=== PATIENT | female | born 1955 | race Hispanic/Latino ===

== ENCOUNTER 2025-02-26 16:07 | Emergency (ER) | payer OTHER ==
[2025-02-26] MEDS ORDERED: IPRATROPIUM BROM 0.5MG/2.5ML ONE (16:41)
[2025-02-26] MEDS ORDERED: ALBUTEROL 2.5 MG/3 ML NEB SOL ONE (16:41)
[2025-02-26] MEDS ORDERED: METHYLPREDNISOLONE 125 MG INJ ONE (16:41)
[2025-02-26 17:01] LABS: Absolute Basophils 0.1 K/uL (0-0.5); Absolute Eosinophils 0.3 K/uL (0-0.5); Absolute Lymphocytes (CBC) 2.8 K/uL (0.7-4.9); Absolute Monocytes 0.8 K/uL (0.1-1.3); Absolute Neutrophil 5.2 K/uL (1.8-8.0); Basophils % 1.4 % (0-1.3); Eosinophils % 3.4 % (0-4.4); Hematocrit 40.9 % (36.0-45.0); Hemoglobin 13.9 g/dL (12.0-15.0); Lymphocytes % 30.1 % (15.3-44.8); MCV 85.4 fL (80-100); MPV 10.6 fL (7.6-11.3); Monocytes % 8.4 % (3.3-12.3); Neutrophils % 56.7 % (41.7-73.7); Nucleated Red Blood Cells % 0.1 % (0-0); Platelets 117 thou/uL (152-406); RBC Red Blood Cell Count 4.78 M/uL (3.86-4.86); Red Cell Distribution Width 14.4 % (12.1-15.2)
[2025-02-26 17:09] LABS: PT Prothrombin Time 11.7 SECONDS (10-13.0); Protime INR 1.03
[2025-02-26 17:18] LABS: Albumin 3.5 g/dL (3.4-5.0); Albumin/Globulin Ratio 0.9 (1.1-1.8); Anion Gap 7.5 mEq/L (5.0-15.0); Bilirubin Total 0.7 mg/dL (0.2-1.0); Globulin 4.1 g/dL (2.3-3.5); Potassium 3.5 mEq/L (3.5-5.1); Protein, Total 7.6 g/dL (6.4-8.2)
[2025-02-26 17:30] LABS: Influenza A Ag Negative; Influenza B Ag Negative; SARS-CoV-2 Antigen Rapid Res Negative (Negative)
--- NOTE | 2025-02-26 17:42 | RAD REPORT ---
EXAM: Chest Single View HISTORY: 69 years Female Dyspnea;Cough COMPARISON: None. FINDINGS: LUNGS/PLEURA: The lungs are clear. No pleural effusions or pneumothorax. No pulmonary edema. CARDIAC/MEDIASTINUM: Mild cardiomegaly UPPER ABDOMEN: No significant abnormality. BONES: No acute abnormality. LINES/TUBES/OTHER: N/A IMPRESSION: No evidence of acute cardiopulmonary disease.
--- NOTE | 2025-02-26 18:25 | EDPHYS ---
Physician Documentation [facility] Name: Martina Wiggins Age: 69 yrs Sex: Female : 1955 Arrival Date: 02/26/2025 Time: 16:07 Bed 2 Private MD: ED Physician Riley Lorenzana HPI: 02/26 17:03 This 69 yrs old Female presents to ER via Wheelchair with complaints of Chest rn Pain, Cough, Breathing Difficulty, Dizziness, wheezing. 17:13 The patient or guardian reports cough, described as mild. Onset: The symptoms/episode rn began/occurred 3 week(s) ago. Severity of symptoms: At their worst the symptoms were mild, in the emergency department the symptoms are unchanged. Modifying factors: The symptoms are alleviated by nothing, the symptoms are aggravated by nothing. The patient has experienced similar episodes in the past. The patient has been recently seen by a physician:. Patient and family report 3 weeks of cough and congestion with difficulty breathing. Family member reports has history of COPD, not on oxygen at home. Patient has had antibiotics and breathing treatments without improvement. Denies chest pain. No abdominal pain or vomiting or diarrhea. Reports generalized weakness and malaise. Historical: - Allergies: 16:26 PENICILLINS; jl7 - PMHx: 16:26 Hypertensive disorder; jl7 - PSHx: 16:26 D\T\C; jl7 - Immunization history:: Adult Immunizations unknown. - Infectious Disease History:: Denies. - Social history:: Smoking status: Patient denies any tobacco usage or history of. - Family history:: not pertinent. - Hospitalizations: : No recent hospitalization is reported. ROS: 17:13 Constitutional: Negative for fever, chills, and weight loss, ENT: Positive for sore rn throat and nasal congestion Neck: Negative for injury, pain, and swelling, Cardiovascular: Negative for chest pain, palpitations, and edema, Respiratory: Positive for cough, positive for shortness of breath and wheezing Abdomen/GI: Negative for abdominal pain, nausea, vomiting, diarrhea, and constipation, Back: Negative for injury and pain, MS/Extremity: Negative for injury and deformity, Skin: Negative for injury, rash, and discoloration, Neuro: Positive for generalized weakness and malaise Exam: 17:13 Constitutional: This is a well developed, well nourished patient who is awake, alert, rn and in no acute distress. Head/Face: Normocephalic, atraumatic. ENT: No stridor Cardiovascular: Regular rate and rhythm. No pulse deficits. Respiratory: No increased work of breathing, no retractions or nasal flaring. Faint wheezing in upper lobes. MS/ Extremity: Pulses equal, no cyanosis. Neuro: Awake and alert, GCS 15, oriented to person, place, time, and situation. Cranial nerves II-XII grossly intact. Motor strength 5/5 in all extremities. Sensory grossly intact. Cerebellar exam normal. Normal gait. Vital Signs: 16:25 BP 174 / 71; Pulse 75; Resp 17; Temp 98; Pulse Ox 98% ; Pain 0/10; jl7 17:20 BP 166 / 95; Pulse 68; Resp 20 S; Pulse Ox 98% on R/A; aa5 18:05 BP 171 / 77; Pulse 67; Resp 18; Pulse Ox 100% on R/A; ph 18:40 BP 170 / 65; Pulse 73; Resp 18 S; Pulse Ox 97% on R/A; aa5 16:25 Pain Scale: Adult jl7 MDM: 16:17 Medical Screening Exam initiated rn 18:23 Differential Diagnosis: Bronchitis Influenza Upper Respiratory Infection Sinusitis rn Pharyngitis Viral Syndrome Pneumonia Other COPD exacerbation. Data reviewed: vital signs, nurses notes, lab test result(s), radiologic studies, and as a result, I will discharge patient. Counseling: I had a detailed discussion with the patient and/or guardian regarding the historical points, exam findings, and any diagnostic results supporting the discharge/admit diagnosis, lab results, radiology results, the need for outpatient follow up, to return to the emergency department if symptoms worsen or persist or if there are any questions or concerns that arise at home. Response to treatment: the patient's symptoms have markedly improved after treatment, and as a result, I will discharge patient. Special discussion: I discussed with the patient/guardian in detail that at this point there is no indication for admission to the hospital. It is understood, however, that if the symptoms persist or worsen the patient needs to return immediately for re-evaluation. ED course: No acute findings on workup. Viral swabs negative. Strep negative. Chest x-ray images negative for pneumonia per my interpretation. Patient feels better with 100% O2 on room air. Will discharge home with Levaquin and steroids for COPD exacerbation. I have personally reviewed all of the results, including but not limited to blood tests and imaging deemed necessary to safely discharge this patient at this time. All results given to and printed out for patient. I personally went over all the results with the patient and answered all questions. Patient will follow-up with PCP and or specialist as discussed. Return precautions given and understood.. 02/26 16:24 Order name: Blood Culture Adult (2) rn 02/26 16:24 Order name: CBC with Diff; Complete Time: 17:30 rn 02/26 16:24 Order name: CMP; Complete Time: 17:30 rn 02/26 16:24 Order name: Lactate w/ 2H reflex if indic.; Complete Time: 17:30 rn 02/26 16:24 Order name: Protime (+inr); Complete Time: 17:30 rn 02/26 16:24 Order name: Ptt, Activated; Complete Time: 17:30 rn 02/26 16:24 Order name: COVID-19 Ag + Flu A+B Ag; Complete Time: 17:30 rn 02/26 16:24 Order name: Group A Streptococcus Rapid; Complete Time: 17:30 rn 02/26 17:32 Order name: Throat Culture EDMT 02/26 16:24 Order name: Chest Single View XRAY; Complete Time: 17:58 rn 02/26 16:24 Order name: EKG; Complete Time: 16:25 rn 02/26 16:24 Order name: Cardiac monitoring; Complete Time: 16:38 rn 02/26 16:24 Order name: EKG - Nurse/Tech; Complete Time: 16:37 rn 02/26 16:24 Order name: IV Saline Lock - Large Bore; Complete Time: 16:40 rn 02/26 16:24 Order name: Labs collected and sent; Complete Time: 16:40 rn 02/26 16:24 Order name: O2 Per Protocol; Complete Time: 16:38 rn 02/26 16:24 Order name: O2 Sat Monitoring; Complete Time: 16:38 rn 02/26 16:24 Order name: Vital Signs; Complete Time: 16:38 rn Administered Medications: 16:56 Drug: MethylPrednisoLONE IVP 125 mg IVP once Route: IVP; Site: right antecubital; aa5 17:20 Follow up: Response: No adverse reaction aa5 16:56 Drug: DuoNeb Nebulize (3:1) (2.5 mg - 0.5 mg) 3 ml Nebulizer once Route: Nebulizer; aa5 17:20 Follow up: Response: No adverse reaction aa5 18:50 Drug: LevOfloxacin PO 500 mg PO once Route: PO; aa5 18:54 Follow up: Response: No adverse reaction aa5 Disposition Summary: 02/26/25 18:24 Discharge Ordered Notes: Location: Home rn Problem: an acute exacerbation rn Symptoms: have improved rn Condition: Stable rn Diagnosis - COPD/ Chronic obstructive pulmonary disease with (acute) exacerbation rn Followup: rn - With: Private Physician - When: As needed - Reason: Recheck today's complaints, Re-evaluation by your physician Discharge Instructions: - Discharge Summary Sheet rn - Chronic Obstructive Pulmonary Disease Exacerbation rn Forms: - Medication Reconciliation Form rn - Antibiotic purchasing internship - Prescription Opioid Use rn - Patient Portal Instructions rn - Leadership Thank You Letter rn Prescriptions: - Prednisone 20 mg Oral Tablet - take 3 tablets ORAL route once daily for 5 days; 15 tablet; Refills: 0, Product rn Selection Permitted - levofloxacin 500 mg Oral tablet - take 1 tablet ORAL route once daily for 7 days; 7 tablet; Refills: 0, Product rn Selection Permitted Signatures: Dispatcher [employer] EDMS Riley Lorenzana MD MD rn Calderon, Audri RN RN aa5 Crystal Oreilly RN RN jl7 Corrections: (The following items were deleted from the chart) 16:25 16:24 BLOOD CULTURE*+BA.LAB.BRZ ordered. EDMS EDMS 16:25 16:24 CBC+H.LAB.BRZ ordered. EDMS EDMS 16:25 16:24 COMPREHENSIVE METABOLIC PANEL+C.LAB.BRZ ordered. EDMS EDMS 16:25 16:24 LACTATE+C.LAB.BRZ ordered. EDMS EDMS 16:25 16:24 PROTIME (+INR)+COAG.LAB.BRZ ordered. EDMS EDMS 16:25 16:24 PTT, ACTIVATED+COAG.LAB.BRZ ordered. EDMS EDMS 16:25 16:24 COVID-19 Ag + Flu A+B Ag+I.LAB.BRZ ordered. EDMS EDMS 16:25 16:24 Group A Streptococcus Rapid Sc+I.LAB.BRZ ordered. EDMS EDMS 18:09 16:24 Marc ordered. rn aa5
--- NOTE | 2025-02-26 18:25 | ER ---
Nurse's Notes [facility] Name: Martina Wiggins Age: 69 yrs Sex: Female : 1955 Arrival Date: 02/26/2025 Time: 16:07 Bed 2 Private MD: Diagnosis: COPD/ Chronic obstructive pulmonary disease with (acute) exacerbation Presentation: 02/26 16:25 Chief complaint: Patient states: cough, congestion, chest soreness with coughing x 3 jl7 weeks. Coronavirus screen: At this time, the client does not indicate any symptoms associated with coronavirus-19. Ebola Screen: No symptoms or risks identified at this time. Initial Sepsis Screen: Does the patient meet any 2 criteria? No. Patient's initial sepsis screen is negative. Does the patient have a suspected source of infection? No. Patient's initial sepsis screen is negative. Risk Assessment: Do you want to hurt yourself or someone else? Patient reports no desire to harm self or others. Onset of symptoms is unknown. 16:25 Method Of Arrival: Wheelchair jl7 16:25 Acuity: SERG 3 jl7 Triage Assessment: 16:26 General: Appears in no apparent distress. uncomfortable, Behavior is calm, cooperative, jl7 appropriate for age. Pain: Denies pain. Neuro: Level of Consciousness is awake, alert, obeys commands, Oriented to person, place, time, situation. Cardiovascular: Patient's skin is warm and dry. Rhythm is regular. Respiratory: Reports cough that is Airway is patent Respiratory effort is even, unlabored, Respiratory pattern is regular, symmetrical. Historical: - Allergies: 16:26 PENICILLINS; jl7 - PMHx: 16:26 Hypertensive disorder; jl7 - PSHx: 16:26 D\T\C; jl7 - Immunization history:: Adult Immunizations unknown. - Infectious Disease History:: Denies. - Social history:: Smoking status: Patient denies any tobacco usage or history of. - Family history:: not pertinent. - Hospitalizations: : No recent hospitalization is reported. Screenin:50 [facility] ED Fall Risk Assessment (Adult) History of falling in the last 3 months, ph including since admission No falls in past 3 months (0 pts) Confusion or Disorientation No (0 pts) Intoxicated or Sedated No (0 pts) Impaired Gait No (0 pts) Mobility Assist Device Used No (0 pt) Altered Elimination No (0 pt) Score/Fall Risk Level 0 - 2 = Low Risk Oriented to surroundings, Maintained a safe environment, Hourly rounding (assess needs \T\ fall precautionary measures) done, Used ambulatory aids as needed (educated on \T\ assisted with). Abuse screen: Denies threats or abuse. Denies injuries from another. Nutritional screening: No deficits noted. Tuberculosis screening: No symptoms or risk factors identified. Assessment: 16:50 General: Appears uncomfortable, Behavior is calm, cooperative. Pain: Denies pain. aa5 Neuro: Level of Consciousness is awake, alert, obeys commands, Oriented to person, place, time, situation. Cardiovascular: Heart tones S1 S2 present Rhythm is regular. Respiratory: Reports shortness of breath cough Airway is patent Respiratory effort is even, unlabored, Respiratory pattern is regular, symmetrical, Breath sounds with wheezes bilaterally. GI: No signs and/or symptoms were reported involving the gastrointestinal system. : No signs and/or symptoms were reported regarding the genitourinary system. EENT: Reports nasal congestion. Derm: Skin is pink, warm \T\ dry. Musculoskeletal: Range of motion: intact in all extremities. 17:20 Reassessment: Patient is alert, oriented x 3, equal unlabored respirations, skin aa5 warm/dry/pink. 18:00 Reassessment: Patient is alert, oriented x 3, equal unlabored respirations, skin aa5 warm/dry/pink. 18:54 Reassessment: Patient is alert, oriented x 3, equal unlabored respirations, skin aa5 warm/dry/pink. Vital Signs: 16:25 BP 174 / 71; Pulse 75; Resp 17; Temp 98; Pulse Ox 98% ; Pain 0/10; jl7 17:20 BP 166 / 95; Pulse 68; Resp 20 S; Pulse Ox 98% on R/A; aa5 18:05 BP 171 / 77; Pulse 67; Resp 18; Pulse Ox 100% on R/A; ph 18:40 BP 170 / 65; Pulse 73; Resp 18 S; Pulse Ox 97% on R/A; aa5 16:25 Pain Scale: Adult jl7 ED Course: 16:12 Patient arrived in ED. al6 16:17 Riley Lorenzana MD is Attending Physician. rn 16:26 Triage completed. jl7 16:26 Arm band placed on right wrist. jl7 16:37 Lisha Ortiz, RN is Primary Nurse. aa5 16:37 EKG done, by ED staff, reviewed by Riley Lorenzana MD. em1 16:44 Initial lab(s) drawn, by hi, sent to lab. First set of blood cultures drawn by ED staff.ph 16:49 Inserted saline lock: 20 gauge in right antecubital area, using aseptic technique. ph Blood collected. Flushed with 10 mL NS. 16:50 Patient has correct armband on for positive identification. Placed in gown. Bed in low ph position. Call light in reach. Side rails up X 1. cash management officer on. Pulse ox on. NIBP on. Door closed. Noise minimized. 16:50 No provider procedures requiring assistance completed. Patient maintains SpO2 aa5 saturation greater than 95% on room air. 17:33 Chest Single View XRAY In Process Unspecified. EDMS 18:54 IV discontinued, intact, bleeding controlled, No redness/swelling at site. Pressure aa5 dressing applied. Administered Medications: 16:56 Drug: MethylPrednisoLONE IVP 125 mg IVP once Route: IVP; Site: right antecubital; aa5 17:20 Follow up: Response: No adverse reaction aa5 16:56 Drug: DuoNeb Nebulize (3:1) (2.5 mg - 0.5 mg) 3 ml Nebulizer once Route: Nebulizer; aa5 17:20 Follow up: Response: No adverse reaction aa5 18:50 Drug: LevOfloxacin PO 500 mg PO once Route: PO; aa5 18:54 Follow up: Response: No adverse reaction aa5 Medication: 16:50 VIS not applicable for this client. ph Outcome: 18:24 Discharge ordered by . rn 18:54 Discharged to home ambulatory, with family, aa5 18:54 Condition: stable 18:54 Discharge instructions given to patient, Instructed on discharge instructions, follow up and referral plans. medication usage, Demonstrated understanding of instructions, follow-up care, medications, Prescriptions given X 2, 18:56 Patient left the ED. aa5 Signatures: Dispatcher [employer] EDMS Riley Lorenzana MD MD rn Martinez, Eric em1 Lisha Ortiz, RN RN aa5 Teri Jara RN RN Crystal Oreilly RN RN jl7 Raquel Hoang al6
[2025-02-26] MEDS ORDERED: levoFLOXacin 250 MG TAB ONE (18:35)
[2025-02-26 19:20] VITALS: TEMP 98
[2025-02-26 19:26] VITALS: BP 170/65; O2SAT 97
--- NOTE | 2025-03-01 11:35 | EKG ---
Test Date: 2025-02-26 Test Time: 16:35:03 [place]er: ANNIE MEASUREMENT RESULTS: Intervals: Rate: 66 OK: 160 QRSD: 154 QT: 476 QTc: 499 [place]: P: 15 OK: 160 QRS: -10 T: 134 INTERPRETIVE STATEMENTS: Normal sinus rhythm Left bundle branch block Abnormal ECG No previous ECG available for comparison Electronically Signed On 03-01-25 11:30:13 CDT by Nelson Yee
== END 2025-02-26 18:56 | disposition home or self-care (01) ==
LOC: ER 16:07
DX: J44.1 Chronic obstructive pulmonary disease with (acute) exacerbation (principal); Z11.52 Encounter for screening for COVID-19
CPT/HCPCS: 87040 ×2; 87070; 85025; 36415; 85610; 83605; 85730; 80053; 71045; 96374; 99285; 87428; J7613; J7644; J2919; 93005